=== PATIENT | male | born 1985 | race Caucasian/White ===

== ENCOUNTER → 2016-11-24 | Outpatient (REF) ==
[~2016-11-24] MED LIST: CEPHALEXIN500 M1 PO; PERCOCET 325 MG1 TA2 PO; PREDNISONE20 MG PO
== END ==
LOC: WSOH 10:27
DX: Z02.89 Encounter for other administrative examinations (principal)

== ENCOUNTER → 2016-12-12 | Outpatient (REF) | LOC: WSOH 12-10 10:12 | DX: Z00.00 Encounter for general adult medical examination without abnormal findings (principal) ==

== ENCOUNTER → 2017-11-11 | Outpatient (CLI) | payer OTHER | LOC: COL.PUL 14:24 | DX: R00.2 Palpitations (principal) ==

== ENCOUNTER → 2021-12-12 | Outpatient (CLI) | payer OTHER | LOC: COL.RAD 12-10 08:15 | DX: M19.012 Primary osteoarthritis, left shoulder (principal); M25.812 Other specified joint disorders, left shoulder | CPT/HCPCS: A9585; Q9967 ==